=== PATIENT | male | born 1980 | race Caucasian/White ===

== ENCOUNTER 2021-02-09 05:24 | Emergency (ER) | payer BC ==
[~2021-02-09] VITALS: Ht 193 cm; Wt 134.0 kg
[2021-02-09 05:55] VITALS: BP 149/65
[2021-02-09] MEDS ORDERED: MORPHINE SULFATE 4 MG/ML, 1ML ONE ×2 (06:00→08:07)
[2021-02-09] MEDS ORDERED: ONDANSETRON 2MG/ML, 2ML ONE (06:00)
[2021-02-09] MEDS ORDERED: ONDANSETRON 2MG/ML, 2ML IVPush ONE (06:00)
[2021-02-09] MEDS ORDERED: PLEASE ENTER ALLERGIES MC SCH (06:00)
[2021-02-09] MEDS: MORPHINE SULFATE 4 MG/ML, 1ML IVPush PRN ×2 (06:04→08:08)
--- NOTE | 2021-02-09 06:04 | NUR ---
PT MEDICATED PT TO IMAGING
--- NOTE | 2021-02-09 06:08 | NUR ---
PT BACK FROM IMAGING
--- NOTE | 2021-02-09 07:02 | NUR ---
BEDSIDE REPORT TO [facility] TRANSFER OF CARE
--- NOTE | 2021-02-09 08:55 | NUR ---
PT PROVIDED DISC OF XRAYS.
== END 2021-02-09 08:57 | disposition home or self-care (01) ==
LOC: ED 06:39
DX: S42.022A Displaced fracture of shaft of left clavicle, initial encounter for closed fracture (principal); W18.30XA Fall on same level, unspecified, initial encounter; Y93.89 Activity, other specified; Y92.410 Unspecified street and highway as the place of occurrence of the external cause; Y99.8 Other external cause status
CPT/HCPCS: 73000; 96374; 96375; 96376; 99284; J2270; J2405